=== PATIENT | female | born 1965 | race Caucasian/White ===

== ENCOUNTER 2023-09-20 20:12 | Emergency (ER) | payer BC ==
[~2023-09-20] VITALS: Ht 170.2 cm; Wt 72.6 kg
[2023-09-20] MEDS ORDERED: HYDR-3713 PO (23:16)
[2023-09-20 23:24] VITALS: BP 131/78; TEMP 98.4; O2SAT 97
[2023-09-20] MEDS: NORCO, ANEXSIA 5/325MG TABLET (HYDROcodone/ACETAMINOPHEN) PO ONE (23:24)
== END 2023-09-20 23:42 | disposition home or self-care (01) ==
LOC: M ED 20:12
DX: S82.65XA Nondisplaced fracture of lateral malleolus of left fibula, initial encounter for closed fracture (principal); Y92.410 Unspecified street and highway as the place of occurrence of the external cause; Y93.9 Activity, unspecified; Y99.9 Unspecified external cause status; Z79.1 Long term (current) use of non-steroidal anti-inflammatories (NSAID)